=== PATIENT | male | born 1955 | race Caucasian/White ===

== ENCOUNTER 2021-03-21 19:37 | Emergency (ER) | payer OTHER, MEDICARE ==
[~2021-03-21] VITALS: Ht 172.7 cm; Wt 91.0 kg
--- NOTE | 2021-03-21 19:58 | RAD ---
CT brain without contrast. HISTORY: Right-sided weakness CT scan the brain was done without contrast. Sinuses are clear. A skull fracture is not identified. T here is no intracranial hemorrhage or subdural hematoma. There is no mass effect or shift of the midl ine. There is a cavum septum pellucidum between the lateral ventricles. Lateral ventricles are normal in size. An acute CVA is not identified. IMPRESSION: 1. No intracranial hemorrhage or acute finding. FOR INTERNAL CODING PURPOSES Critical result: Findings discussed with ER physician at 03/21/2021 7:54 PM. RESULT CODE: (C) PQRS Compliance Statement: One or more of the following individualized dose reduction techniques were utilized for this examinat ion: 1. Automated exposure control 2. Adjustment of the mA and/or kV according to patient size 3. Use of iterative reconstruction technique Electronically signed by: Durga Darden MD (03/21/2021 7:55 PM) [facility]
[2021-03-21 20:06] LABS: BASO # 0.1 x10^3/uL (0.0-0.2); BASO % 1 % (0-3); EOS # 0.2 x10^3/uL (0.0-0.7); EOS % 2 % (0-3); HEMATOCRIT 43.1 % (39.0-53.0); HEMOGLOBIN 14.6 g/dL (13.0-17.5); LYMPH # 2.5 x10^3/uL (1.0-4.8); LYMPH % 23 % (24-48); MEAN CORPUSCULAR HEMOGLOBIN 30 pg (25-35); MEAN CORPUSCULAR HGB CONC 34 g/dL (31-37); MEAN CORPUSCULAR VOLUME 89 fL (79-100); MONO # 1.5 x10^3/uL (0.0-1.1); MONO % 14 % (0-9); NEUT # 6.6 x10^3uL (1.8-7.7); NEUT % 61 % (31-73); PLATELET COUNT 191 x10^3/uL (140-400); RED BLOOD COUNT 4.83 x10^6/uL (4.30-5.70); WHITE BLOOD COUNT 10.8 x10^3/uL (4.0-11.0)
--- NOTE | 2021-03-21 20:08 | RAD ---
AP chest. HISTORY: Syncope, right-sided weakness AP view was taken of the chest. Lungs are clear. Heart is normal in size. There is no effusion. IMPRESSION: 1. No acute chest disease. Electronically signed by: Durga Darden MD (03/21/2021 8:05 PM) [facility]
[2021-03-21 20:13] LABS: CREATININE 0.9 mg/dL (0.7-1.3); GFR 84.4; POTASSIUM 3.7 mmol/L (3.5-5.1)
[2021-03-21] MEDS ORDERED: IOHEXOL 350 MG/ML 100 ML VIAL. IV ONE (20:15)
[2021-03-21 20:18] LABS: ALBUMIN/GLOBULIN RATIO 1.4 (1.0-1.7); MAGNESIUM 2.1 mg/dL (1.8-2.4); TOTAL BILIRUBIN 0.5 mg/dL (0.2-1.0); TOTAL PROTEIN 6.8 g/dL (6.4-8.2)
--- NOTE | 2021-03-21 20:33 | PHYS DOC ---
Past History Past Medical History: Other Additional Past Medical Histor: hemorrhoids Past Surgical History: Other Additional Past Surgical Histo: foot surgery Alcohol Use: None Adult General Chief Complaint Chief Complaint: NEURO SYMPTOMS/DEFICITS HPI HPI DiseasePatient is a 65-year-old male with no past medical history, on no medications who presents for chief complaint of lightheadedness and syncope with some right-sided numbness. States that about 7:30 PM this evening he ate dinner with his family, and when leaving the restaurant, got into his car and all of a sudden felt lightheaded, confused and had complete right-sided numbness and tingling but no paralysis. States that the tingling went from his toe up into his arm and a little on the right corner of his lip. States he never had anything like this before. Denies headache, changes in vision, trouble swallowing, chest pain, shortness of breath, abdominal pain, nausea, vomiting, trouble ambulating. Denies any facial droop, slurred speech. States this episode lasted about 30 minutes and mostly resolved. States here in the ED he has a little bit of tingling in his right fingers but it is mostly resolved now. Review of Systems Review of Systems Review of systems otherwise unremarkable except noted in HPI Current Medications Current Medications Current Medications Medications (Trade) Dose Ordered Sig/Cash Start Time Stop Time Status Last Admin Dose Admin Iohexol (Omnipaque 350 Mg/ml) 100 ml 1X ONCE 03/21/21 20:15 03/21/21 20:16 DC 03/21/21 20:21 100 ML Allergies Allergies Allergies Coded Allergies Type Severity Reaction Last Updated Verified No Known Drug Allergies 03/21/21 No Physical Exam Physical Exam Constitutional: Well developed, well nourished, no acute distress, non-toxic appearance. [] HENT: Normocephalic, atraumatic, bilateral external ears normal, oropharynx moist, no oral exudates, nose normal. [] Eyes: PERRLA, EOMI, conjunctiva normal, no discharge. [] Neck: Normal range of motion, no tenderness, supple, no stridor. [] Cardiovascular:Heart rate regular rhythm, no murmur [] Lungs & Thorax: Bilateral breath sounds clear to auscultation [] Abdomen: Bowel sounds normal, soft, no tenderness, no masses, no pulsatile masses. [] Skin: Warm, dry, no erythema, no rash. [] Back: No tenderness, no CVA tenderness. [] Extremities: No tenderness, no cyanosis, no clubbing, ROM intact, no edema. [] Neurologic: Alert and oriented X 3, normal motor function, mild tingling and different sensation in the right arm, cranial nerves intact, right upper extremi ty ataxia with [id number]. Initial NIH of 6 for ataxia and aphasia, decreased to a 3 after about 15 minutes with mild aphasia and ataxia of the upper right limb on [id number] [] Psychologic: Affect normal, judgement normal, mood normal. [] Current Patient Data Vital Signs Vital Signs Date Time Temp Pulse Resp B/P (MAP) Pulse Ox O2 Delivery O2 Flow Rate FiO2 03/21/21 19:55 98.6 64 18 180/93 (122) 89 Lab Results Laboratory Tests Test 03/21/21 19:41 03/21/21 19:44 03/21/21 19:49 Prothrombin Time 10.0 SEC (9.4-11.4) Prothrombin Time INR 1.0 (0.9-1.1) Activated Partial Thromboplast Time 25 SEC (23-33) Glucose (Fingerstick) 91 mg/dL (70-99) White Blood Count 10.8 x10^3/uL (4.0-11.0) Red Blood Count 4.83 x10^6/uL (4.30-5.70) Hemoglobin 14.6 g/dL (13.0-17.5) Hematocrit 43.1 % (39.0-53.0) Mean Corpuscular Volume 89 fL (79-100) Mean Corpuscular Hemoglobin 30 pg (25-35) Mean Corpuscular Hemoglobin Concent 34 g/dL (31-37) Red Cell Distribution Width 13.0 % (11.5-14.5) Platelet Count 191 x10^3/uL (140-400) Neutrophils (%) (Auto) 61 % (31-73) Lymphocytes (%) (Auto) 23 % (24-48) L Monocytes (%) (Auto) 14 % (0-9) H Eosinophils (%) (Auto) 2 % (0-3) Basophils (%) (Auto) 1 % (0-3) Neutrophils # (Auto) 6.6 x10^3uL (1.8-7.7) Lymphocytes # (Auto) 2.5 x10^3/uL (1.0-4.8) Monocytes # (Auto) 1.5 x10^3/uL (0.0-1.1) H Eosinophils # (Auto) 0.2 x10^3/uL (0.0-0.7) Basophils # (Auto) 0.1 x10^3/uL (0.0-0.2) D-Dimer (Jessie) 0.30 mg/L (0.00-0.50) Sodium Level 143 mmol/L (136-145) Potassium Level 3.7 mmol/L (3.5-5.1) Chloride Level 106 mmol/L (98-107) Carbon Dioxide Level 28 mmol/L (21-32) Anion Gap 9 (6-14) Blood Urea Nitrogen 24 mg/dL (8-26) Creatinine 0.9 mg/dL (0.7-1.3) Estimated GFR (Cockcroft-Gault) 84.4 BUN/Creatinine Ratio 27 (6-20) H Glucose Level 86 mg/dL (70-99) Calcium Level 9.0 mg/dL (8.5-10.1) Magnesium Level 2.1 mg/dL (1.8-2.4) Total Bilirubin 0.5 mg/dL (0.2-1.0) Aspartate Amino Transferase (AST) 22 U/L (15-37) Alanine Aminotransferase (ALT) 36 U/L (16-63) Alkaline Phosphatase 87 U/L (46-116) Troponin I Quantitative < 0.017 ng/mL (0-0.055) Total Protein 6.8 g/dL (6.4-8.2) Albumin 4.0 g/dL (3.4-5.0) Albumin/Globulin Ratio 1.4 (1.0-1.7) EKG EKG [] Radiology/Procedures Radiology/Procedures []Exam: CTA head and neck INDICATION: Right-sided numbness, aphasia TECHNIQUE: Sequential axial images through the head and neck obtained following the administration 100 mL of Omni 350 IV contrast. Sagittal and coronal reformatted images were reconstructed from the axial data and reviewed. Comparisons: CT head without contrast same day FINDINGS: CTA NECK: Visualized portions of the thoracic aorta are unremarkable. Three-vessel aortic arch configuration common origin brachiocephalic and left common carotid artery and separate origin of the left vertebral artery. Right common carotid artery is patent without evidence of stenosis, occlusion or aneurysm. Cervical segment of the right internal carotid artery is patent without evidence of stenosis, occlusion or aneurysm. Left common carotid artery is patent without evidence of stenosis, occlusion or aneurysm. Cervical segment of the left internal carotid artery is patent without evidence of stenosis, occlusion or aneurysm. Right vertebral artery is patent to basilar confluence without evidence stenosis, occlusion or aneurysm. Left vertebral artery is patent to basilar confluence without evidence of stenosis, occlusion or aneurysm. Visualized paraspinal soft tissues are unremarkable. CTA HEAD: Intracranial segments of the right internal carotid artery are patent without evidence of stenosis, occlusion or aneurysm. Right MCA is patent. Right BARBARA is patent. Intracranial segments of the left internal carotid artery are patent without evidence of stenosis, occlusion or aneurysm. Left MCA is patent. Left BARBARA is patent. Basilar artery is patent without evidence of stenosis, occlusion or aneurysm. cost controller are patent bilaterally. IMPRESSION: 1. No large vessel occlusion. 2. Patent intracranial cervical arterial vasculature without evidence of stenosis, occlusion or aneurysm. P chest. HISTORY: Syncope, right-sided weakness AP view was taken of the chest. Lungs are clear. Heart is normal in size. There is no effusion. IMPRESSION: 1. No acute chest disease. Electronically signed by: Durga Darden MD (03/21/2021 8:05 PM) [facility] Heart Score C/O Chest Pain: No Risk Factors: Risk Factors: DM, Current or recent (<one month) smoker, HTN, HLP, family his tory of CAD, obesity. Risk Scores: Risk Factors: DM, Current or recent (<one month) smoker, HTN, HLP, family history of CAD, obesity. Course & Med Decision Making Course & Med Decision Making Patient is a 65-year-old male who presents with numbness, tingling, lightheadedness and mild confusion suggestive of TIA Vital signs notable for hypertension. Physical exam noted above. EKG noted above with no STEMI. CT of the head and CTA of the head and neck with no acute findings. NIH initially of 6, and then 3 after some time in the ED then resolved. Laboratory analysis not concerning. Patient symptoms slowly resolved while in the ED over approximately 2 hours. Patient's history, exam and NIH suggestive of TIA. Discussed all findings with patient and recommended transfer and admission for continued evaluation and treatment by neurology team including probable MRI. Patient grateful, verbalized understanding and agreed with plan of transfer and admission. [] Dragon Disclaimer Dragon Disclaimer This electronic medical record was generated, in whole or in part, using a voice recognition dictation system. Departure Departure: Impression: Primary Impression: TIA (transient ischemic attack) Additional Impressions: Numbness and tingling Lightheadedness Disposition: 02 [facility]ORT TERM [facility]OS[facility] Admitting Physician: Other Condition: IMPROVED Referrals: JASON RIVERA MD (PCP) Problem Qualifiers DORIS FORD MD Mar 21, 2021 20:33
--- NOTE | 2021-03-21 20:59 | RAD ---
Exam: CTA head and neck INDICATION: Right-sided numbness, aphasia TECHNIQUE: Sequential axial images through the head and neck obtained following the administration 10 0 mL of Omni 350 IV contrast. Sagittal and coronal reformatted images were reconstructed from the axi al data and reviewed. Comparisons: CT head without contrast same day FINDINGS: CTA NECK: Visualized portions of the thoracic aorta are unremarkable. Three-vessel aortic arch configuration co mmon origin brachiocephalic and left common carotid artery and separate origin of the left vertebral artery. Right common carotid artery is patent without evidence of stenosis, occlusion or aneurysm. Cervical s egment of the right internal carotid artery is patent without evidence of stenosis, occlusion or aneu rysm. Left common carotid artery is patent without evidence of stenosis, occlusion or aneurysm. Cervical se gment of the left internal carotid artery is patent without evidence of stenosis, occlusion or aneury sm. Right vertebral artery is patent to basilar confluence without evidence stenosis, occlusion or aneury sm. Left vertebral artery is patent to basilar confluence without evidence of stenosis, occlusion or aneu rysm. Visualized paraspinal soft tissues are unremarkable. CTA HEAD: Intracranial segments of the right internal carotid artery are patent without evidence of stenosis, o cclusion or aneurysm. Right MCA is patent. Right BARBARA is patent. Intracranial segments of the left internal carotid artery are patent without evidence of stenosis, oc clusion or aneurysm. Left MCA is patent. Left BARBARA is patent. Basilar artery is patent without evidence of stenosis, occlusion or aneurysm. it application architect are patent bilater ally. IMPRESSION: 1. No large vessel occlusion. 2. Patent intracranial cervical arterial vasculature without evidence of stenosis, occlusion or aneu rysm. Exposure: One or more of the following in the visualized dose reduction techniques were utilized for this examination: 1. Automated exposure control 2. Adjustment of the MA and/or KV according to patient size 3. Use of iterative of reconstructive technique FOR INTERNAL CODING PURPOSES Critical result: Findings discussed with Delano Noble at 03/21/2021 8:48 PM. RESULT CODE: (C) Electronically signed by: Magalie Hatfield MD (03/21/2021 8:56 PM) [facility]
--- NOTE | 2021-03-21 22:48 | EKG ---
[address] [address] Test Date: 2021-03-21 Test Time: 19:54:17 Pat Name: MONISHA WILSON Department: Room: Gender: M Supervisor [employer]: CECILIA : 1955 Requested By: DORIS FORD Order Number: [id number] Reading MD: Measurements Intervals [place] Rate: 70 P: 42 RI: 164 QRS: -24 QRSD: 90 T: 50 QT: 378 QTc: 411 Interpretive Statements SINUS RHYTHM LEFTWARD AXIS OTHERWISE NORMAL ECG RI6.02 No previous ECG available for comparison
[2021-03-21 23:00] VITALS: BP 158/81
== END 2021-03-21 23:30 | disposition short-term general hospital (02) ==
LOC: ER 19:37
DX: G45.9 Transient cerebral ischemic attack, unspecified (principal); R20.2 Paresthesia of skin; R42 Dizziness and giddiness
CPT/HCPCS: 36415; 70450; 70496; 70498; 71045; 80053; 82947; 83735; 84443; 84484; 85025; 85379; 85610; 85730; 93005; 99285; Q9967